=== PATIENT | male | born 1955 | race Caucasian/White ===

== ENCOUNTER → 2016-04-09 13:12 | Outpatient (CLI) | payer BC | END | disposition home or self-care (01) | LOC: D.CT 13:12 | DX: R10.9 Unspecified abdominal pain (principal) ==

== ENCOUNTER 2016-12-17 05:59 | Day surgery (SDC) | payer BC ==
[2016-12-16 16:30] LABS: HEMATOCRIT 37.5 % (42.0-54.0); HEMOGLOBIN 12.5 g/dL (13.5-17.5); MCH 30.1 pg (26.0-34.0); MCHC 33.3 g/dL (31.0-37.0); MCV 90.4 fL (80.0-100.0); MEAN PLATELET VOLUME 9.5 fL (7.4-10.4); RBC 4.15 10x6/uL (4.20-6.10); RDW 12.2 % (11.5-14.5); WBC 12.9 10x3/uL (4.8-10.8)
[~2016-12-17] VITALS: Ht 172.7 cm; Wt 95.5 kg
[~2016-12-17 05:59] MED LIST: AMBIEN5 MG PO; BUPROPION HCL75 MG PO; CELEXA40 MG PO; METOPROLOL TAR100 M1 PO; NEURONTIN 300300 MG PO; PRAVACHOL40 MG PO; PRINIVIL20 MG PO; TYLENOL W/CODEI1 TAB PO
[2016-12-17 08:14] VITALS: BP 122/70; BMI 32.0
[2016-12-17] MEDS ORDERED: TORADOL10 MG PO (11:24)
[2016-12-17] MEDS ORDERED: PERCOCET 5-3251 TAB PO (11:24)
--- NOTE | 2016-12-17 11:45 | NUR ---
PT IS STILL COMPLAING OF PAIN IN LEG AFTER 2MG OF DILAUDID. REASSESS RIGHT LEG AND NOTICED SWEELING IN THE RIHGT UPPER LEG AND GROIN. SKIN IS TIGHT AND COLD TO TOUCH. NOTIFIED AT THIS TIME ALONG WITH ANESTHESIA. DR. BUITRAGO ARRIVED INTO PACU AND V.O OF STAT CT WITH CONTRAST ORDERED. V.O.R.B CORRECT. WILL TRANSPORT PT OVER TO CT ROOM.
--- NOTE | 2016-12-17 12:04 | NUR ---
ARRIVED INTO CT ROOM. HELP TRANSFER PT OVER TO CT BED. PT IS ALERT AND TALKING. CONTINUING TO MONITOR
--- NOTE | 2016-12-17 12:15 | NUR ---
ARRIVED BACK INTO RECOVERY IN STABLE CONDIOTN. PT IS STILL A&OX4.
--- NOTE | 2016-12-17 12:20 | NUR ---
SUCCESSFULLY INSRETED CROOK CATHETOR PER ORDER FROM . PT TOLERATED WELL. ANCHORED TO LEFT UPPER THIGH
--- NOTE | 2016-12-17 12:28 | NUR ---
WAS INFORMED FROM THAT THE SWEELING IS JUST SALINE SUBQUTANIES. THAT HE WILL NEED TO STAY OVERNIGHT TO MONITOR. AND TO APPLY HEAT TO THE EFFECTED AREA.
[2016-12-17 12:31] LABS: BASOPHILS 0.3 % (0-2); EOSINOPHILS 2.5 % (0-7); HEMATOCRIT 37.9 % (42.0-54.0); HEMOGLOBIN 12.3 g/dL (13.5-17.5); IMMATURE GRANULOCYTES 0.7 % (0-5); LYMPHOCYTES 10.8 % (15-50); MCH 29.9 pg (26.0-34.0); MCHC 32.5 g/dL (31.0-37.0); MCV 92.2 fL (80.0-100.0); MEAN PLATELET VOLUME 9.8 fL (7.4-10.4); MONOCYTES 4.7 % (2-11); PLATELET COUNT 315 10x3/uL (130-400); RBC 4.11 10x6/uL (4.20-6.10); RDW 12.1 % (11.5-14.5)
--- NOTE | 2016-12-17 14:21 | NUR ---
DR BUITRAGO REVIEWED CT. ADVISED PLACING WARM, MOIST CLOTHS ON RIGHT UPPER EXTREMITY.
--- NOTE | 2016-12-17 14:41 | NUR ---
CROOK EMPTIED 350ML CLEAR YELLOW URINE. ASKING FOR CROOK TO BE REMOVED. SCROTUM IS SWOLLEN. ORDERS NOTED TO REMOVE CROOK. INSTRUCTED PATIENT IF UNABLE TO VOID HE MAY NEED IN AND OUT CATHETER, VOICED UNDERSTANDING. UP WITH CRUTCHES TO BATHROOM, GAIT STEADY, TOLERATED WELL.
--- NOTE | 2016-12-17 14:53 | NUR ---
BACK TO SIDE OF BED. STATES DID NOT VOID AT ALL. STATES BACK PAIN IS DOWN TO A "3". STILL WITH SWELLING TO THIGH AND SCROTUM, APPEARS BETTER ON THIGH THAN MARKED. PATIENT STATES "THIGH FEELS BETTER, NO PAIN AT ALL NOW."
[2016-12-17 15:50] LABS: ERYTHROCYTE SEDIMENTATION RATE 62 mm/hr (0-20)
--- NOTE | 2016-12-17 15:56 | NUR ---
SITTING UP IN BED. TORADOL GIVEN SCHEDULED. AWAITING BED TO GET READY ON MED SURG FLOOR.
--- NOTE | 2016-12-17 16:21 | NUR ---
PATIENT TRANSFERRED BY WHEELCHAIR TO ROOM 2211, REPORT PREVIOUSLY GIVEN TO AARTI MOSCOSO.
--- NOTE | 2016-12-17 16:26 | OP ---
PATIENT NAME: KIRIT REBOLLAR MEDICAL RECORD: [id number] :57 LOCATION:[facility] ADMISSION DATE: SURGEON: RILEY BUITRAGO DO DATE OF OPERATION: 12/17/2016 PROCEDURES PERFORMED: Right knee arthroscopy with partial medial and partial lateral meniscectomy as well as partial synovectomy. PREOPERATIVE DIAGNOSIS: Right knee pain that was locked. 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 SURGEON: Riley Buitrago DO INDICATIONS: Mr. Rebollar is a 61-year-old male who has had a locked right knee for 2 weeks. He has tried injections and pain control. He even tried to get an MRI, which he could not tolerate lying there and getting his knee straight. He was locked in a flexed position. It hurts more when he flexes or extends. This has been going on for 2 weeks. I saw him in the office on Tuesday and scheduled him for today. He was in agreement with the procedures. I told him it was likely a meniscal tear as I flipped into the notch, causing his knee to be locked. This is why he has consented for right knee scope. DESCRIPTION OF PROCEDURE: Mr. Rebollar was taken to the operative suite, placed in the supine position, and given general anesthetic. The right leg was identified as the correct leg. Time-out was performed and everyone was in agreement that the right leg is correct leg. We did the right knee arthroscopy. The right leg was then prepped and draped in sterile fashion. The patient was given 2 grams of Ancef. Once this was done, the knee was brought into the flexed position. The anterior, inferior, medial, and lateral portal sites were injected with 0.5% Marcaine with epinephrine, i.e., 4.5 mL in each site. The #11 blade was used to establish a lateral portal. The trocar was then placed into the knee. The knee was brought into extension and the suprapatellar pouch was viewed, having some loose bodies in there as well as the patellar chondromalacia was seen. The diagnostic arthroscopy was then commenced. We proceeded into the lateral gutter and no loose body was seen in there. The medial gutter was not able to be viewed due to the synovitis. The knee was then flexed and the medial compartment was seen and viewed. Large amounts of synovitis were seen. The medial portal was then established first with a spinal needle and a #11 blade. The shaver was taken into the knee at that time and the synovitis was shaved out with a shaver. Once this viewing was obtained, the medial meniscal tear was seen. Menisci had been torn. There was no large loose body seen at that time, but there were some tears on the medial meniscus as well as the chondromalacia on the medial femoral condyle. Both were probed. A shaver was put into the medial compartment through the medial portal and the meniscus was shaved back to a stable point as well as the loose cartilage on the medial femoral condyle. Once this was done, attention was then drawn to the notch. The notch was extremely inflamed, having quite a bit of inflamed synovitis. This was again chewed out with a shaver for viewing purposes. Once this was done, the notch was probed. It was very difficult to get into with the probe and a loose piece of meniscus was then encountered just on the lateral side of the ACL in the notch. This was chewed out with the shaver and the notch then was opened up. Once this was done, the lateral compartment was viewed by OPERATIVE REPORT [id number] KIRIT REBOLLAR [id number] in the leg. In the lateral compartment, a meniscal tear was seen at that time on the medial third of the meniscus, which was treated out with shaver. The synovitis also was seen in the lateral compartment just anterior to the medial femoral condyle, was removed as well as a loose piece of what appeared to be cartilage was removed at that time also with shaver. Then, suprapatellar pouch was then reentered and the synovitis was chewed away with a shaver. Again, in the suprapatellar pouch, loose bodies were looked for. The medial gutter was then viewed for loose bodies and none were seen. Once this was done, the camera was removed and suction was turned on to remove any excess fluid out of the knee. The portal sites were then closed with single inverted interrupted 4-0 Monocryl. Steri-Strips were placed over those and then Adaptic, 4 x 4's, ABD, Vu wrap, and HANG hose were placed on the patient's right lower leg. Blood loss was minimal. TRANSINT:[id number] Voice Confirmation ID: [id number] DOCUMENT ID: [id number] RILEY BUITRAGO DO at 1626 CC: [id number] DICTATION DATE: 12/17/16 1146 [employer]ER: 12/17/16 15[id number] [place] [address]
[2016-12-17 18:09] VITALS: Ht 172.7 cm; Wt 95.5 kg
[2016-12-17 20:00] VITALS: BP 104/58
[2016-12-18] VITALS: BP 105/60
[2016-12-18 04:00] VITALS: BP 115/60
[2016-12-18 04:48] LABS: HEMATOCRIT 31.7 % (42.0-54.0); HEMOGLOBIN 10.2 g/dL (13.5-17.5)
[2016-12-18 09:45] VITALS: BP 112/69
--- NOTE | 2016-12-18 10:59 | NUR ---
D/C PAPERWORK BEING REVIEWED WITH PT BY ANNABELLE SUN AT THIS TIME. RESPIRATIONS EVEN AND NON LABORED. CALL LIGHT IN REACH AND AT BEDSIDE. WILL CONTINUE WITH PLAN OF CARE.
--- NOTE | 2016-12-18 11:58 | NUR ---
IV DC'D WITH TIP INTACT. RXs GIVEN TO PATIENT. DC INSTRUCTIONS EXPLAINED TO PATIENT AND . VERBALIZED UNDERSTANDING. DC'D TO VEHICLE VIA WC WITH .
== END 2016-12-18 12:00 | disposition home or self-care (01) ==
LOC: D.OPS 05:59 → D.MS 05:59 → D.OPS 08:30 → D.PAN 08:30 → D.OPS 09:00 → D.MS 16:36 → D.OPS 12-18 12:00
PROVIDERS: Anesthesiology; Orthopaedic Surgery
DX: S83.281A Other tear of lateral meniscus, current injury, right knee, initial encounter (principal); S83.241A Other tear of medial meniscus, current injury, right knee, initial encounter; M22.42 Chondromalacia patellae, left knee; F17.200 Nicotine dependence, unspecified, uncomplicated; I10 Essential (primary) hypertension; G47.30 Sleep apnea, unspecified; K21.9 Gastro-esophageal reflux disease without esophagitis; Z01.812 Encounter for preprocedural laboratory examination; M23.42 Loose body in knee, left knee